=== PATIENT | male | born 2000 | race Two or more races ===

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

== ENCOUNTER 2018-01-28 23:07 | Emergency (ER) | payer OTHER ==
[~2018-01-28] VITALS: Ht 182.9 cm; Wt 72.3 kg
[2018-01-29 01:39] VITALS: BP 125/65
== END 2018-01-29 01:50 | disposition home or self-care (01) ==
LOC: EMS 23:07
DX: B37.0 Candidal stomatitis (principal)

== ENCOUNTER 2018-04-17 16:44 | Emergency (ER) | payer OTHER | END 2018-04-17 17:06 | disposition left against medical advice (07) | LOC: EMS 16:45 | DX: M54.9 Dorsalgia, unspecified (principal); Z53.21 Procedure and treatment not carried out due to patient leaving prior to being seen by health care provider ==

== ENCOUNTER 2018-08-06 04:45 | Emergency (ER) | payer OTHER ==
[~2018-08-06] VITALS: Ht 180.3 cm; Wt 75.9 kg
[2018-08-06] MEDS ORDERED: ACETAMINOPHEN 500 MG TABLET PO ONE (05:45)
[2018-08-06 07:42] VITALS: BP 129/62
== END 2018-08-06 07:44 | disposition home or self-care (01) ==
LOC: EMS 04:47
DX: R51 Headache (principal); R20.0 Anesthesia of skin
CPT/HCPCS: 70450